=== PATIENT | female | born 1930 | race Caucasian/White ===

== ENCOUNTER → 2016-10-29 | Outpatient (CLI) | payer OTHER ==
[~2016-10-29] MED LIST: ALEVE220 M1 PO; ANASTROZOLE1 MG PO; ASPIRIN EC81 M1 PO; BISACODYL SUPP10 MG RECTAL; CALCIUM 600 +1 EAC1 PO; CARDIZEM CD240 MG PO; COUMADIN 1MG TAB1 M1 PO; COUMADIN 3 MG TA3 M1 PO; COUMADIN 5 MG TA5 M1 PO; COZAAR100 MG PO; CRESTOR10 MG PO; CRESTOR20 MG PO; GLIPIZIDE 10 MG10 MG PO; GLIPIZIDE XL5 MG PO; GLUCOPHAGE500 MG PO; HYDROCODONE-AP1 EAC6 PO; KLOR-CON 1010 MEQ PO; LASIX 20 MG TAB20 MG PO; LEVAQUIN 750 M750 MG PO; LISINOPRIL5 MG PO; MULTIVITAMINS PO; NORCO 5-325 TA1 EACH PO; NORVASC10 MG PO; OXYGEN; PRINZIDE 10-121 EACH PO; PROAIR HFA8.5 GM INH; SENNA8.6 MG PO; VALIUM2 MG PO; VITAMIN B-12500 MCG PO
== END ==
LOC: RAD 11:14
DX: J90 Pleural effusion, not elsewhere classified (principal)

== ENCOUNTER → 2017-03-13 | Outpatient (CLI) | payer OTHER | LOC: RAD 03-07 11:21 | DX: J98.11 Atelectasis (principal); J91.0 Malignant pleural effusion ==

== ENCOUNTER → 2017-05-08 | Outpatient (CLI) | payer OTHER ==
[~2017-05-08] MED LIST changes: +ACETAMINOPHEN325 M1 PO; +TYLENOL PM EX-1 EACH PO
--- NOTE | ~2017-05-08 | EKG ---
[address] [address] ELECTROCARDIOGRAM REPORT Name: ZENAIDA WYNN [id number] Admission: 05/08/17 Attend Phys: Jose Daniel Soriano MD Discharge: Date of : 30 Report #: [id number] THIS REPORT FOR: //name// [facility] Test Date: 2017-05-08 Test Time: 10:15:16 Pat Name: ZENAIDA WYNN Department: Room: Gender: F Shade Bander: Atul COLUNGA : 1930 Requested By: Jose Daniel Soriano Order Number: [id number] MD: Rohan Noel Measurements Intervals Ellery Rate: 70 P: IA: QRS: -70 QRSD: 145 T: 12 QT: 409 QTc: 442 Interpretive Statements Atrial fibrillation RBBB and LAFB Compared to ECG 03/31/2016 16:24:36 No significant changes Electronically Signed On 05-08-2017 12:01:39 CDT by Rohan Noel [email or web address] <ELECTRONICALLY SIGNED> By: Rohan Noel MD 05/08/17 1201 [id number] [id number] Rohan Noel MD /MYLA
[2017-05-08 09:43] LABS: HEMATOCRIT 40.9 % (37.0-47.0); HEMOGLOBIN 13.5 gm/dL (12.0-15.0); MCH 34.2 pg (26.0-34.0); MCV 103.7 fL (80.0-100.0); RBC 3.95 mil/uL (4.20-5.00); RDW 15.4 % (10.5-14.5); WBC 8.7 thou/uL (4.0-11.0)
[2017-05-08 09:51] LABS: CREATININE 1.4 mg/dL (0.6-1.0); POTASSIUM 3.6 mmol/L (3.5-5.1)
[2017-05-08 09:56] LABS: APTT 23.3 Seconds (24.5-32.8); PROTIME 9.6 Seconds (9.3-11.4)
[2017-05-08 09:57] LABS: ALBUMIN 3.3 g/dL (3.4-5.0); TOTAL BILIRUBIN 0.4 mg/dL (<0.1-1.0); TOTAL PROTEIN 6.2 g/dL (6.4-8.2)
== END ==
LOC: LABMALL 09:15
PROVIDERS: Specialist
DX: J90 Pleural effusion, not elsewhere classified (principal); Z85.3 Personal history of malignant neoplasm of breast

== ENCOUNTER 2017-05-10 05:17 | Day surgery (SDC) | payer OTHER ==
[~2017-05-10] VITALS: Ht 167.6 cm; Wt 78.5 kg
--- NOTE | ~2017-05-10 | O ---
[facility] [place] [address] OPERATIVE REPORT Name: ZENAIDA WYNN Room #: 150-1 [facility] M..#: [id number] Admission: 05/10/17 Attend Phys: Jose Daniel Soriano MD Discharge: Date of : 30 Report #: [id number] THIS REPORT FOR: //name// CC: Jose Daniel Pollack MD DATE OF SERVICE: 05/10/2017 PREOPERATIVE DIAGNOSIS: History of breast cancer with right chest wall mass. POSTOPERATIVE DIAGNOSIS: History of breast cancer with right chest wall mass. OPERATION: 1. Placement of venous Port-A-Cath with fluoroscopy for chemotherapy. 2. Resection of right chest wall mass with layered closure. SURGEON: Jose Daniel Soriano MD. ANESTHESIA: General. DESCRIPTION OF PROCEDURE: Under satisfactory general anesthesia and with the patient in the supine position, the right chest wall and the left chest wall and the neck were widely prepped with ChloraPrep solution and sterile drapes were applied. The patient was placed in Trendelenburg position. A needle was inserted into the left subclavian vein without difficulty on the first take. The guidewire was advanced centrally using fluoroscopic guidance. A short infraclavicular incision was made and a subcutaneous pocket was fashioned. The catheter was inserted into the vein using the Peel-Apart dilator introducer, positioning the tip of the catheter into the superior vena cava near the right atrium using fluoroscopic guidance. The other end of the catheter was cut to appropriate length and then was attached to the port as per manufacture's recommendations. The port was flushed with saline and there was excellent blood return. The port was packed with heparin. Hemostasis was excellent. The port was secured to the underlying tissues using interrupted 3-0 Prolene. The incision was closed in layers using running 4-0 PDS for the subcutaneous layer and running 4-0 PDS for the subcuticular layer. Next, the right chest wall mass near the medial aspect of the old mastectomy scar was resected. This was marked preoperatively by the patient and myself. A transverse elliptical incision was made in order to fully encompass the mass and the overlying skin and the underlying subcutaneous fat which was all resected together with the mass. This was submitted to pathology. Hemostasis was obtained using electrocautery. There was no evidence of invasion of the mass to the underlying rib. The incision was closed in layers using running 3-0 Vicryl for the deep layer and [address] [address] OPERATIVE REPORT Name: ZENAIDA WYNN Room #: 150-1 [facility]#: [id number] Admission: 05/10/17 Attend Phys: Jose Daniel Soriano MD Discharge: Date of : 30 Report #: [id number] running 4-0 PDS for the subcuticular layer. Sterile dressings were applied and the patient was taken to recovery in satisfactory condition. A portable chest x-ray was obtained and the placement of the catheter appeared excellent with no evidence of pneumothorax. By: 1542 [id number] Jose Daniel Soriano MD /nt
--- NOTE | ~2017-05-10 | S ---
[facility] [place] [address] SURGICAL PATH RPT PROCEDURE Name: NICOLE WYNN Room #: DEP [facility] M.R.#: [id number] Admission: 05/10/17 Date of : 30 Discharge: 05/10/17 Report #: [id number] Path Case #: [id number] PATHOLOGY REPORT COLLECTION DATE: 05/10/2017 RECEIVED DATE: 05/10/2017 SUBMITTING PHYS: Dr. Jose Daniel Soriano OTHER PHYS: Dr. 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 - Carcinoma involves inked resection margin. - Skin with benign angioma. COMMENT: This case is co-reviewed by Dr. Allie Mei. PATHOLOGIST: Kelvin Lee M.D. REPORT ELECTRONICALLY SIGNED BY: Kelvin Lee M.D. DATE/TIME: 05/14/2017 08:39 * * * * * * * * * * * * GROSS PATHOLOGY: The specimen is received in formalin, labeled "Nicole Lopez and chest wall mass history of mastectomy", is an unoriented ellipse of nunes-white skin 4.7 x 1.3 cm with a depth of 0.7 cm. The skin surface has a 0.2 cm in greatest dimension nunes purple macule and the underlying soft tissue contains an indurated area 1.0 x 0.8 x 0.8 cm. Inked black, serially section into 12 pieces to show a eubanks-white homogeneous lesion corresponding to the indurated soft tissue that abuts the black ink. Aircraft Engine Technician sections submitted as follows: A1-A4 contiguous section of indurated area (A1 contains macule) A5 tips (SWS; 05/11/2017) CLINICAL HISTORY: Chest wall mass INITIAL CPT CODE(S): A; [address] [address] SURGICAL PATH RPT PROCEDURE Name: NICOLE WYNN Room #: DEP [facility] M.R.#: [id number] Admission: 05/10/17 Date of : 30 Discharge: 05/10/17 Report #: [id number] Path Case #: [id number] Professional services performed by [facility] at [address], [place] [address] Technical services performed by [facility] at [address] [place] [address], [address], [place] [address]. [facility] [address] [address] PHONE: [phone] DIRECTOR: Ramone Bryan M.D. * * * END OF REPORT * * *
[2017-05-10 11:13] VITALS: BP 151/79
== END 2017-05-10 16:40 | disposition home or self-care (01) ==
LOC: OR 05:17 → TBA 05:17 → OR 09:26
DX: C50.911 Malignant neoplasm of unspecified site of right female breast (principal)
CPT/HCPCS: 50010; 50101; 50386; 50403; 51938; 56524; 56526; 62110; 62900; 70005

== ENCOUNTER → 2017-05-14 | Outpatient (CLI) | payer OTHER | LOC: RAD 10:50 | DX: J90 Pleural effusion, not elsewhere classified (principal); I51.7 Cardiomegaly ==

== ENCOUNTER 2017-05-20 16:19 | Emergency (ER) | payer OTHER ==
[~2017-05-20] VITALS: Ht 167.6 cm; Wt 75.8 kg
[~2017-05-20 16:19] MED LIST changes: -KLOR-CON 1010 MEQ PO; +KLOR-CON M2020 MEQ PO
[2017-05-20] MEDS ORDERED: XELODA500 MG PO (16:40)
[2017-05-20] MEDS ORDERED: ENDOCET 5-3251 EACH PO (16:40)
[2017-05-20] MEDS ORDERED: GEMZAR1 GM IV (16:42)
[2017-05-20 17:12] LABS: HEMATOCRIT 35.1 % (37.0-47.0); HEMOGLOBIN 11.7 gm/dL (12.0-15.0); MCH 34.2 pg (26.0-34.0); MCHC 33.3 g/dL (28.0-37.0); MCV 102.5 fL (80.0-100.0); PLATELET COUNT 118 thou/uL (150-400); RBC 3.42 mil/uL (4.20-5.00); RDW 14.7 % (10.5-14.5); WBC 4.5 thou/uL (4.0-11.0)
[2017-05-20 17:13] LABS: MANUAL DIFF YES
[2017-05-20 17:21] LABS: CREATININE 1.5 mg/dL (0.6-1.0); POTASSIUM 3.5 mmol/L (3.5-5.1)
[2017-05-20 17:27] LABS: ALBUMIN 2.6 g/dL (3.4-5.0); DIRECT BILIRUBIN 0.1 mg/dL (<0.1-0.3); TOTAL BILIRUBIN 0.5 mg/dL (<0.1-1.0); TOTAL PROTEIN 6.2 g/dL (6.4-8.2)
[2017-05-20 17:37] LABS: ABSOLUTE NEUTROPHILS 4.3 thou/uL (1.4-8.2); PLATELET ESTIMATE DECREASED; TOTAL CELL COUNT 100
[2017-05-20 17:44] LABS: URINE BILIRUBIN NEGATIVE (Negative); URINE BLOOD NEGATIVE (Negative); URINE GLUCOSE-RANDOM* 2+ (Negative); URINE KETONES TRACE (Negative); URINE LEUKOCYTES-REFLEX NEGATIVE (Negative); URINE PROTEIN (DIPSTICK) 1+ (Negative); URINE SPECIFIC GRAVITY >= 1.030 (1.003-1.035); URINE UROBILINOGEN 0.2 E.U./dl (0.2-1.0)
[2017-05-20 17:46] LABS: URINE COLOR AMBER
[2017-05-20 17:47] LABS: SQUAMOUS 4-10 Moderate /LPF (0-3); URINE RBC None Seen /HPF (0-2); URINE WBC-REFLEX None Seen /HPF (0-5)
[2017-05-20 17:48] LABS: CRYSTALS None Seen /LPF (None Seen); FINE GRANULAR CASTS 0-3 Few /LPF (None Seen); HYALINE CASTS 0-3 Few /LPF (None Seen)
== END 2017-05-20 19:00 | disposition home or self-care (01) ==
LOC: ER 16:19
PROVIDERS: Emergency Medicine
DX: R50.9 Fever, unspecified (principal); T45.1X5A Adverse effect of antineoplastic and immunosuppressive drugs, initial encounter; I10 Essential (primary) hypertension; I48.91 Unspecified atrial fibrillation; E78.5 Hyperlipidemia, unspecified; J44.9 Chronic obstructive pulmonary disease, unspecified; E11.9 Type 2 diabetes mellitus without complications; F10.99 Alcohol use, unspecified with unspecified alcohol-induced disorder; Z85.3 Personal history of malignant neoplasm of breast; Z90.49 Acquired absence of other specified parts of digestive tract; Y92.89 Other specified places as the place of occurrence of the external cause

== ENCOUNTER → 2017-07-03 | Outpatient (CLI) | payer OTHER ==
[~2017-07-03] MED LIST changes: +ENDOCET 5-3251 EACH PO; +GEMZAR1 GM IV; +PRADAXA75 MG PO; +XELODA500 MG PO
== END ==
LOC: NUC 10:39
DX: C50.911 Malignant neoplasm of unspecified site of right female breast (principal); M85.80 Other specified disorders of bone density and structure, unspecified site; M81.0 Age-related osteoporosis without current pathological fracture; J44.9 Chronic obstructive pulmonary disease, unspecified; E11.9 Type 2 diabetes mellitus without complications; I48.2 Chronic atrial fibrillation; I10 Essential (primary) hypertension; Z78.0 Asymptomatic menopausal state

== ENCOUNTER → 2017-07-12 | Outpatient (CLI) | payer OTHER | LOC: RAD 10:08 | DX: J90 Pleural effusion, not elsewhere classified (principal); Z90.11 Acquired absence of right breast and nipple ==

== ENCOUNTER → 2017-11-14 | Outpatient (CLI) | payer OTHER | LOC: RAD 11:32 | DX: I51.7 Cardiomegaly (principal); J90 Pleural effusion, not elsewhere classified; J98.11 Atelectasis; R79.1 Abnormal coagulation profile ==

== ENCOUNTER → 2017-11-19 | Outpatient (CLI) | payer OTHER ==
--- NOTE | ~2017-11-19 | CNG ---
[facility] [place] [address] CYTO-NONGYN REPORT PROCEDURE Name: NICOLE BRUNO Room #: REG [facility]..#: [id number] Admission: 11/19/17 Date of : 30 Discharge: Report #: [id number] Path Case #: [id number] CYTOPATHOLOGY REPORT COLLECTION DATE: 11/19/2017 RECEIVED DATE: 11/19/2017 SUBMITTING PHYS: Dr. Abby Sorto OTHER PHYS: Dr. Jacob Barone CLINICAL HISTORY: Pleural effusion SPECIMEN(S) RECEIVED: A.Pleural fluid, Left * * * * * * * * * * * * FINAL DIAGNOSIS: A. Pleural fluid, left: - POSITIVE FOR MALIGNANCY. - MALIGNANT CELLS PRESENT WITH FEATURES CONSISTENT WITH ADENOCARCINOMA (SEE COMMENT). 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 The patient also has a history of multiple pleural fluids that are positive for malignancy ([id number], [id number], and [id number]). Clinical and radiographic correlation is recommended. The case is co-reviewed with Dr. Neda Gupta. The case is discussed with Dr. Kyle Garner on 11/20/2017 at approximately 08:15 a.m. (CLW:yoni; 11/20/2017) PATHOLOGIST: Allie Mei M.D. REPORT ELECTRONICALLY SIGNED BY: Allie Mei M.D. DATE/TIME: 11/20/2017 14:44 * * * * * * * * * * * * GROSS PATHOLOGY: A. Pleural fluid, Left: The specimen is submitted unfixed, labeled "Nicole Bruno". Received by the Cytology Department is 27 mL of cloudy red fluid. One ThinPrep slide and a formalin fixed cell block were prepared. (lg.) FINGERPRINT EXPERT(S): ABIDA Way(ASCP) INITIAL CPT CODE(S): [address] [address] CYTO-NONGYN REPORT PROCEDURE Name: NICOLE BRUNO Room #: [facility].#: [id number] Admission: 11/19/17 Date of : 30 Discharge: Report #: [id number] Path Case #: [id number]; [id number], [id number] Professional services performed by [facility] at [address] , [place] [address] [facility] [address] [place] [address]., [address], [place] [address]. [facility] [address] [place] [address], [address] [place] [address] PHONE: [phone] DIRECTOR: Ramone W. Randi, M.D. * * * END OF REPORT * * *
[2017-11-19 12:24] LABS: CLARITY CLOUDY; COLOR RED; SOURCE LT CHEST; TOTAL VOLUME 60 mL
[2017-11-19 13:08] LABS: BF NUCLEATED CELLS 640; BF RBC 11193
[2017-11-19 14:57] LABS: BF NEUTROPHILS 3
[2017-11-20 09:02] LABS: SOURCE CHEST
[2017-11-20 14:10] LABS: BODY FLUID ALBUMIN 1.4 g/dL (()); BODY FLUID AMYLASE 30 U/L (()); BODY FLUID GLUCOSE 49 mg/dL (()); BODY FLUID LDH 1325 IU/L (()); BODY FLUID PROTEIN 2.3 g/dL (())
== END | disposition home or self-care (01) ==
LOC: ULTRA 05:56 → RAD 09:14 → ULTRA 09:15
PROVIDERS: Internal Medicine Hematology & Oncology
DX: C34.92 Malignant neoplasm of unspecified part of left bronchus or lung (principal); J91.0 Malignant pleural effusion; I48.91 Unspecified atrial fibrillation; Z87.01 Personal history of pneumonia (recurrent); Z87.440 Personal history of urinary (tract) infections; Z85.3 Personal history of malignant neoplasm of breast; Z79.01 Long term (current) use of anticoagulants; Z79.899 Other long term (current) drug therapy; Z79.891 Long term (current) use of opiate analgesic

== ENCOUNTER → 2017-12-03 | Outpatient (CLI) | payer OTHER | LOC: RAD 11:11 | DX: J90 Pleural effusion, not elsewhere classified (principal); J98.11 Atelectasis; I48.91 Unspecified atrial fibrillation ==

== ENCOUNTER → 2017-12-17 | Outpatient (CLI) | payer OTHER | LOC: RAD 10:28 | DX: J90 Pleural effusion, not elsewhere classified (principal); J44.9 Chronic obstructive pulmonary disease, unspecified ==